=== PATIENT | female | born 1960 | race Caucasian/White ===

== ENCOUNTER 2018-05-20 06:15 | Day surgery (SDC) | payer OTHER ==
[2018-05-20] MEDS ORDERED: LACTATED RINGERS 1,000 ML IV ONE (07:00)
--- NOTE | 2018-05-20 07:08 | ANESTHESIA ---
Pre-Anesthesia VS, & Labs - Diagnosis Screening age - Procedure Colonnoscopy Vital Signs: Temp Pulse Resp BP Pulse Ox 36.1 C L 86 16 137/97 H 97 05/20/18 06:36 05/20/18 06:36 05/20/18 06:36 05/20/18 06:36 05/20/18 06:36 Height 5 ft 3 in Weight (kg) 88.8 kg - NPO >8 hours Last Fluid Intake: Prep at 0400, water at 05 - Is Patient ?: No - Lab Results Lab results reviewed: No Home Medications and Allergies Home Medications: Ambulatory Orders Ibuprofen [Advil] 6 DAILY PM 05/20/18 Ibuprofen [Advil] 6 DAILY PM 05/20/18 Allergies/Adverse Reactions: Allergies Allergy/AdvReac Type Severity Reaction Status Date / Time fentanyl Allergy Severe Rash Verified 05/20/18 07:00 codeine Allergy Emesis Verified 05/20/18 06:59 Iodinated Contrast- Oral and Allergy Itching Verified 05/20/18 06:59 IV Dye iodine Allergy Itching Verified 05/20/18 06:59 Anes History & Medical History - Anesthetic History Anesthesia Complications: reports: No previous complications Family history of Anesthesia Complications: Denies Family history of Malignant Hyperthermia: Denies - Medical History Cardiovascular: reports: None Pulmonary: reports: None Gastrointestinal: reports: Ulcers Urinary: reports: None Neuro: reports: None, Other (Hx pinched nerve on right, hx disc surgery, neck) Musculoskeletal: reports: None Endocrine/Autoimmune: reports: None Blood Disorders: reports: None Skin: reports: None Smoking Status: Former smoker Psychosocial: reports: No issues indicated - Surgical History General: Appendectomy Neurologic: Other (cervical discectomy) Orthopedic: Other Exam General: Alert Dental: WNL Mouth Opening: Greater than 4 Fingerbreadths Neck Mobility: Normal Mallampati classification: II Thyromental Distance: greater than 6 cm Respiratory: Lungs clear Cardiovascular: Regular rate Neurological: Normal speech Mental/Cognitive Status: Alert/Oriented X3 Cognitive Status: Within normal limits Plan Anesthesia Type: Total IV Consent for Procedure(s) Verified and Reviewed: Yes Code Status: Attempt Resuscitation ASA classification: 2-Mild systemic disease Is this case an emergency?: No
[2018-05-20] MEDS ORDERED: LIDOCAINE-MPF 2% 5 ML VIAL IM ONE (07:45)
[2018-05-20] MEDS ORDERED: PROPOFOL 200 MG/20 ML VIAL IVP ONE (07:45)
[2018-05-20] MEDS ORDERED: MIDAZOLAM 2 MG/2 ML VIAL IVP ONE (07:45)
[2018-05-20 08:20] VITALS: BP 118/87
== END 2018-05-20 06:16 | disposition home or self-care (01) ==
LOC: SDS 06:15
PROVIDERS: ATTEND Surgery
PROC: 0DJD8ZZ Inspection of Lower Intestinal Tract, Via Natural or Artificial Opening Endoscopic (ICD-10-PCS; principal; 2018-05-20 07:30)
DX: Z12.11 Encounter for screening for malignant neoplasm of colon (principal); K57.30 Diverticulosis of large intestine without perforation or abscess without bleeding; K64.8 Other hemorrhoids; Z86.010 Personal history of colon polyps; Z87.891 Personal history of nicotine dependence
CPT/HCPCS: 45378; J7120

== ENCOUNTER 2019-11-07 11:33 | Outpatient (CLI) | payer OTHER ==
--- NOTE | 2019-11-07 18:43 | Ultrasound Report ---
Reason: MASS,CYST CALIFICATIONS Procedure Date: 11/07/2019 Accession Number: [id number] / [id number] Procedure: US - Head or Neck Soft Tissue CPT Code: Final Report FULL RESULT: EXAM: NECK ULTRASOUND EXAM DATE: 11/07/2019 12:08 PM. CLINICAL HISTORY: Firm nonmobile 2 cm mass located at left superior central forehead. Per patient lump appeared in 2008, worsening 1.5 years with no mobility. Please assess for possible cyst or calcification. COMPARISON: None. TECHNIQUE: Real-time sonographic imaging was performed by the watch guard gate utilizing color-flow. Multiple entry level sales representative static images were saved for review. FINDINGS: At the area of concern along the left superior central forehead is a shadowing 1.4 x 1.2 cm structure without vascularity and most likely arising from the calvarium and calcified. There is a thin superficial hyperechoic rim overlying largely hypoechoic area centrally with marked shadowing. IMPRESSION: 1. Left superior central forehead 1.4 cm mass likely arising from the calvarium and indeterminate, although may represent an osteoma. Confirmation warranted with CT scan of the head for further detail. RADIA
== END 2019-11-07 11:34 | disposition home or self-care (01) ==
LOC: DI 11:33
PROVIDERS: ATTEND Nurse Practitioner Family
DX: R22.0 Localized swelling, mass and lump, head (principal)
CPT/HCPCS: 76536

== ENCOUNTER 2019-11-12 14:09 | Outpatient (CLI) | payer OTHER ==
[2019-11-12 14:35] LABS: ALBUMIN 4.2 g/dL (3.2-5.5); ALBUMIN/GLOBULIN RATIO 1.2 (1.0-2.2); BILIRUBIN,TOTAL 0.7 mg/dL (0.2-1.0); CREATININE 0.8 mg/dL (0.4-1.0); TOTAL PROTEIN 7.6 g/dL (6.7-8.2)
--- NOTE | 2019-11-12 20:23 | CT Report ---
Reason: LUMP ON FOREHEAD, PT ALERGIC TO IODINE CONTRAST Procedure Date: 11/12/2019 Accession Number: [id number] / [id number] Procedure: CT - HEAD WO CPT Code: Final Report FULL RESULT: EXAM: CT HEAD EXAM DATE: 11/12/2019 02:35 PM. CLINICAL HISTORY: LUMP ON FOREHEAD, PT ALLERGIC TO IODINE CONTRAST. COMPARISON: Ultrasound head 11/07/2019. TECHNIQUE: Multiaxial CT images were obtained from the foramen magnum to the vertex. Reformats: Sagittal and coronal. IV contrast: None. In accordance with CT protocol optimization, one or more of the following dose reduction techniques were utilized for this exam: automated exposure control, adjustment of mA and/or KV based on patient size, or use of iterative reconstructive technique. FINDINGS: Parenchyma: No intraparenchymal hemorrhage. No evidence of mass, midline shift, or CT findings of infarction. Pompa-white differentiation is distinct. Extraaxial Spaces: Normal for age. No subdural or epidural collections identified. Ventricles: Normal in size and position. Sinuses and Orbits: Imaged paranasal sinuses, orbits, and mastoids show no significant abnormality. Bones: No evidence of acute fracture. Underlying the BB marker, there is a well-defined bony lesion measuring 14 x 6 mm (series 7 image 14), likely representing benign bony lesion such as an osteoma as suggested by the prior ultrasound. Other: None. IMPRESSION: 1. No evidence of acute fracture. Underlying the BB marker, there is a well-defined bony lesion measuring 14 x 6 mm (series 7 image 14), likely representing benign bony lesion such as an osteoma as suggested by the prior ultrasound. 2. Otherwise unremarkable CT of the head. RADIA
== END 2019-11-12 14:10 | disposition home or self-care (01) ==
LOC: LAB 14:09
PROVIDERS: ATTEND Nurse Practitioner Family
DX: M89.9 Disorder of bone, unspecified (principal)
CPT/HCPCS: 36415; 70450; 80053

== ENCOUNTER 2021-09-19 08:44 | Outpatient (CLI) | payer OTHER ==
--- NOTE | 2021-09-20 14:54 | Nuclear Medicine Report ---
PROCEDURE: Thyroid Imaging and Uptake INDICATIONS: SUBCLINICAL HYPERTHYROIDISM RADIOPHARMACEUTICAL: 425 Ci I-123 sodium iodide by mouth. TECHNIQUE: I-123 sodium iodide was administered orally. Anterior neck images were obtained, and iodine uptake b y the thyroid gland calculated using manager of health's software. COMPARISON: None available. FINDINGS: Morphology: There is increased uptake in the right thyroid lobe, suspicious for a large right thyroi d nodule. Left thyroid lobe has uniform activity. Uptake: The 6-hour thyroid uptake is 11.9%; normal ranges are from 6-18%. The 24-hour thyroid uptak e is 24.7%; normal ranges are from 10-30%. IMPRESSION: 1. Asymmetrically increased uptake in the right thyroid lobe compared to the left thyroid lobe, suspi cious for a large right thyroid nodule. Recommend ultrasound for follow-up evaluation. 2. Normal 6-hour and 24-hour radioactive iodine uptake. Reviewed by: Denice Mckeon MD on 09/20/2021 2:53 PM PST Approved by: Denice Mckeon MD on 09/20/2021 2:53 PM PST Station ID: [id number]
== END 2021-09-19 08:45 | disposition home or self-care (01) ==
LOC: DI 08:44
PROVIDERS: ATTEND Family Medicine
DX: E05.90 Thyrotoxicosis, unspecified without thyrotoxic crisis or storm (principal)
CPT/HCPCS: 78014; A9509

== ENCOUNTER 2021-09-28 07:10 | Outpatient (CLI) | payer OTHER ==
--- NOTE | 2021-09-28 16:04 | Ultrasound Report ---
PROCEDURE: Head or Neck Soft Tissue INDICATIONS: ABN THYROID SCAN, THYROID NODULE TECHNIQUE: Real-time scanning was performed of the thyroid gland, with image documentation. COMPARISON: None FINDINGS: Right: Thyroid lobe measures 4.5 x 1.6 x 1.7 cm, and is homogeneous in echotexture. Left: Thyroid lobe measures 4.0 x 1.4 x 1.2 cm, and is homogenous in echotexture. Isthmus: 4.3 mm thick. Nodule number: 1 Location: Right midpole Size: 1.6 x 1.4 x 1.6 cm. Composition: Predominantly solid Echogenicity: Hypoechoic Shape: wider than tall. Margins: Smooth Echogenic foci: None Total points: 4 ACR TI-RADS category: 4 Nodule number: 2 Location: Right inferior pole Size: 1.4 x 1.1 x 1.3 cm. Composition: Solid Echogenicity: Hypoechoic Shape: wider than tall. Margins: Lobulated Echogenic foci: Punctate Total points: 9 ACR TI-RADS category: 5 Nodule number: 3 Location: Location Size: 0.4 x 0.4 x 0.4 cm. Composition: Cystic Echogenicity: Anechoic Shape: wider than tall. Margins: Smooth Echogenic foci: None Total points: 0 ACR TI-RADS category: 1 Nodule number: 4 Location: Left midpole Size: 0.5 x 0.6 x 0.5 cm. Composition: Solid Echogenicity: Hypoechoic Shape: wider than tall. Margins: Lobulated Echogenic foci: None Total points: 6 ACR TI-RADS category: 4 Nodule number: 5 Location: Left midpole Size: 0.5 x 0.6 x 0.5 cm. Composition: Solid Echogenicity: Hypoechoic Shape: wider than tall. Margins: Lobulated Echogenic foci: None Total points: 6 ACR TI-RADS category: 4 Nodule number: 6 Location: Isthmus Size: 1.0 x 0.5 x 0.8 cm. Composition: Solid Echogenicity: Hypoechoic Shape: wider than tall. Margins: Lobulated Echogenic foci: None Total points: 6 ACR TI-RADS category: 4 IMPRESSION: 1. Right midpole nodule measuring 1.6 x 1.4 x 1.6 cm TI-RADS 4 and greater than 1.5 cm. Recommend ult rasound-guided FNA. 2. Right inferior pole nodule TI-RADS 5 measuring 1.4 x 1.1 x 1.3 cm. Recommend ultrasound-guided FNA . 3. Recommend follow-up of the remaining nodules at 1, 3, and 5 years. ACR TI-RADS definitions and recommendations: TI-RADS 1 (benign): 0 points. FNA not needed. TI-RADS 2 (not suspicious): 2 points. FNA not needed. TI-RADS 3 (mildly suspicious): 3 points. "FNA if 2.5 cm or larger, follow up if 1.5 cm or larger (at 1, 3, and 5 years). TI-RADS 4 (moderately suspicious): 4-6 points. "FNA if 1.5 cm or larger, follow up if 1 cm or larger (at 1, 2, 3, and 5 years). TI-RADS 5 (highly suspicious): 7 points or more. "FNA if 1 cm or larger, follow up if 0.5 cm or larger (every year for 5 years). Reviewed by: Vikas Ibarra on 09/28/2021 4:03 PM PST Approved by: Vikas Ibarra on 09/28/2021 4:03 PM PST Station ID: [id number]
== END 2021-09-28 07:11 | disposition home or self-care (01) ==
LOC: DI 07:10
PROVIDERS: ATTEND Family Medicine
DX: E04.2 Nontoxic multinodular goiter (principal)

== ENCOUNTER 2021-10-02 14:16 | Outpatient (CLI) | payer OTHER ==
--- NOTE | 2021-10-10 11:31 | Mammography Report ---
BILATERAL DIGITAL SCREENING MAMMOGRAM 3D/2D: 10/02/2021 CLINICAL: Routine screening. Routine screening. No prior exams were available for comparison. There are scattered fibroglandular elements in both br easts. No significant masses, calcifications, or other findings are seen in either breast. IMPRESSION: NEGATIVE There is no mammographic evidence of malignancy. A 1 year screening mammogram is recommended. This exam was interpreted at Station ID: [id number]. NOTE: For mammograms, a report in lay terms will be sent to the patient. Approximately 15% of breast malignancies will not be visualized mammographically. In the management of a palpable breast mass, a negative mammogram must not discourage biopsy of a clinically suspicious lesion. Electronically Signed By: Guru michel/[email or web address]:10/10/2021 07:49:02 ACR BI-RADS Category 1: Negative 3341F PARENCHYMAL PATTERN: (A) - The breast(s) demonstrate(s) scattered fibroglandular densities. BI-RADS CATEGORY: (1) - 1 RECOMMENDATION: (ANNUAL) - Recommend routine annual screening mammography. [id number] 1 year screening LATERALITY: (B)
== END 2021-10-02 14:17 | disposition home or self-care (01) ==
LOC: DI.S 14:16
PROVIDERS: ATTEND Family Medicine
DX: Z12.31 Encounter for screening mammogram for malignant neoplasm of breast (principal)